=== PATIENT | female | born 1970 | race Caucasian/White ===

== ENCOUNTER 2023-04-25 04:48 | Emergency (ER) | payer MEDICAID ==
[~2023-04-25] VITALS: Ht 165.1 cm; Wt 77.3 kg
[~2023-04-25 04:48] MED LIST: ASPI-1265 PO; CLIN-97 PO; CLON-527 PO; FLUO20CA39 PO; LISI20TA28 PO; LUBI8CAP PO; PER10325T PO; POLY17PO10 PO; PROM25TA14 PO
[2023-04-25 04:59] VITALS: RESP 18; TEMP 98.2
[2023-04-25] MEDS ORDERED: LORazepam 2 mg/ml vial IM STA (05:02)
[2023-04-25 05:42] VITALS: BP 175/106; PULSE 90; O2SAT 97
== END 2023-04-25 05:57 ==
LOC: ER 04:48
DX: I10 Essential (primary) hypertension; F41.9 Anxiety disorder, unspecified; Z88.8 Allergy status to other drugs, medicaments and biological substances; Z88.0 Allergy status to penicillin; Z88.6 Allergy status to analgesic agent
CPT/HCPCS: 96372; 99283; J2060